=== PATIENT | female | born 1980 | race Caucasian/White ===

== ENCOUNTER 2025-06-24 15:19 | Emergency (ER) | payer MEDICAID ==
[~2025-06-24] VITALS: Ht 152.4 cm; Wt 73.0 kg
[2025-06-24 15:21] VITALS: O2SAT 97
[2025-06-24] MEDS: LIDOCAINE 5% PATCH TOP SCH (16:48)
[2025-06-24] MEDS ORDERED: ACET-2708 MT (18:01)
[2025-06-24] MEDS ORDERED: LIDO-53 TP (18:01)
[2025-06-24 18:59] VITALS: BP 126/78; PULSE 98; RESP 18; TEMP 36.8; O2SAT 99
== END 2025-06-24 19:01 | disposition home or self-care (01) ==
LOC: ER 15:19
DX: M54.59 Other low back pain (principal); I10 Essential (primary) hypertension; J45.909 Unspecified asthma, uncomplicated; M53.3 Sacrococcygeal disorders, not elsewhere classified; W18.30XA Fall on same level, unspecified, initial encounter; Y93.89 Activity, other specified; Y92.89 Other specified places as the place of occurrence of the external cause; Y99.8 Other external cause status
CPT/HCPCS: 81025; 72220; 70450; 72125; 99284; Z7610